=== PATIENT | female | born 2000 | race Caucasian/White ===

== ENCOUNTER 2021-11-26 13:55 | Emergency (ER) | payer SELFPAY ==
[~2021-11-26] VITALS: Ht 160 cm; Wt 44.1 kg
[2021-11-26 14:06] VITALS: TEMP 99.2
[2021-11-26] MEDS ORDERED: NEURONTIN300 MG/CAP PO (14:13)
[2021-11-26 14:30] LABS: COLLECTION METHOD CLEAN CATCH
[2021-11-26 14:42] LABS: MUCOUS Present (NOT PRESENT); PH 5 (5-8); URINE APPEARANCE Hazy (CLEAR/HAZY); URINE BACTERIA Rare /hpf (NONE SEEN); URINE BILIRUBIN Negative (NEGATIVE); URINE BLOOD 1+ (NEGATIVE); URINE COLOR Yellow (YELLOW); URINE GLUCOSE Negative (NEGATIVE); URINE KETONE Negative (NEGATIVE); URINE LEUKOCYTE ESTERASE Trace (NEGATIVE); URINE NITRATE Positive (NEGATIVE); URINE PROTEIN(semi-quant) Negative (NEGATIVE); URINE UROBILINOGEN Negative (NEGATIVE)
[2021-11-26] MEDS ORDERED: CEFTIN500 MG PO (16:18)
[2021-11-26 16:40] VITALS: BP 109/74; PULSE 76
== END 2021-11-26 16:42 | disposition home or self-care (01) ==
LOC: COL.ER 13:55
PROVIDERS: Emergency Medicine
DX: N39.0 Urinary tract infection, site not specified (principal); K62.89 Other specified diseases of anus and rectum; Z28.310 Unvaccinated for COVID-19; Z32.02 Encounter for pregnancy test, result negative

== ENCOUNTER 2023-10-06 08:59 | Inpatient (IN) | payer MEDICAID ==
[2023-10-06] VITALS (18 sets, daily range): BP systolic 102–130; BP diastolic 52–82; PULSE 48–85; TEMP 98–98.4
[~2023-10-06] VITALS: Ht 162.6 cm; Wt 71.4 kg
[~2023-10-06 08:59] MED LIST: CEFTIN500 MG PO; MACROBID 1100 MG/CAP PO; NEURONTIN300 MG/CAP PO
--- NOTE | 2023-10-06 09:10 | NUR ---
0910- Pt arrives on unit via wheelchair with family for scheduled primary section. Pt into bathroom to change into gown, Pt does not appear uncomfortable. 0914- Pt into bed. EFM and TOCO on and tracing well. Pt denies VB/LOF/UCs. Pt reports good FM. POC discussed, questions answered. Call light within reach.
[2023-10-06] MEDS ORDERED: LR 1,000 ML IV SCH (09:45)
[2023-10-06] MEDS ORDERED: PRENATAL TABLET PO (09:48)
[2023-10-06 10:15] LABS: BASO # 0.1 K/mm3 (0.0-0.2); BASO % 0.5 % (0.0-2.0); EOS # 0.2 K/mm3 (0.0-0.7); EOS % 2.1 % (0.0-4.0); GRAN # 8.4 K/mm3 (1.4-6.5); GRAN % 74.4 % (42.2-75.2); HEMOGLOBIN 11.5 g/dl (12.5-16.0); LYMPH # 1.6 K/mm3 (1.2-3.4); LYMPH % 14.2 % (20.0-51.0); MEAN CELL VOLUME 88 fl (80.0-100.0); MEAN CORPUSCULAR HEMOGLOBIN 30 pg (27-31); MEAN CORPUSCULAR HGB CONC 34 g/dl (33.0-37.0); MEAN PLATELET VOLUME 10.9 fl (7.4-10.4); MONO # 0.9 K/mm3 (0.1-0.6); MONO % 8.4 % (1.7-9.3); PLATELET COUNT 296 K/mm3 (130-400); RED BLOOD COUNT 3.84 M/mm3 (4.10-5.30); REDCELL DISTRIBUTION WIDTH-CV 12.4 % (11.5-14.5)
[2023-10-06 10:19] LABS: HEMATOCRIT 33.7 % (37.0-47.0)
[2023-10-06] MEDS ORDERED: Oxytocin 10 UNITS/ML VIAL ONE (10:36)
[2023-10-06] MEDS ORDERED: Ondansetron 4 MG/2 ML VIAL ONE (10:36)
[2023-10-06] MEDS ORDERED: NS 30 ML IV ONE (10:36)
[2023-10-06] MEDS ORDERED: Phenylephrine 10 MG/ML VIAL ONE (10:36)
[2023-10-06] MEDS ORDERED: EPINEPHrine 1 MG/1 ML Ampule ONE (10:36)
[2023-10-06] MEDS ORDERED: Ketorolac 30 MG/ML VIAL ONE (10:36)
[2023-10-06] MEDS ORDERED: dexAMETHasone 10 MG/ML VIAL ONE (10:36)
--- NOTE | 2023-10-06 11:45 | NUR ---
1145- Dr Sousa at bedside, completed, fetus breech presentation. FHR seen and evaluated by .
[2023-10-06] MEDS ORDERED: fentaNYL 50 MCG/ML 2 ML VIAL ONE (12:20)
[2023-10-06] MEDS ORDERED: Loratadine 10 MG TAB PO PRN (13:00)
[2023-10-06] MEDS ORDERED: Magnes Hydrox (MOM) 80 MG/ML 30 ML CUP PO PRN (13:00)
[2023-10-06] MEDS ORDERED: Ondansetron 4 MG/2 ML VIAL IV PRN (13:45)
[2023-10-06] MEDS ORDERED: Measles/Mumps/Rubella Virus Vaccine Live w Diluent 0.5 ML VIAL SQ SCH (13:45)
[2023-10-06] MEDS ORDERED: LR 1,000 ML IV PRN (13:45)
[2023-10-06] MEDS ORDERED: Naloxone 0.4 MG/ML VIAL IV PRN (13:45)
[2023-10-06] MEDS ORDERED: oxyCODONE/Acetaminophen 5-325 MG TAB PO PRN (13:45)
--- NOTE | 2023-10-06 16:14 | NUR ---
1545 RN BEDSIDE, CHANGES PADS AND PLACES ABDOMINAL BINDER ON PT
[2023-10-06] MEDS ORDERED: Sennosides/Docusate 8.6-50 MG TAB PO SCH (17:00)
--- NOTE | 2023-10-06 18:50 | NUR ---
1849- PT HAS CALLED OUT FOR PAIN MEDICATION. NURSE TO BEDSIDE. PT COMPLAINS OF PAIN 10/10 CRAMPING IN HER ABDOMEN AND AT INCISION SITE. DISCUSSED PERC NOT AVAILABLE UNTIL 1939. OFFERED HER SCHEDULED MOTRIN AND SHE WILL TAKE THIS. PUMP SETUP PROVIDED PER PT REQUEST AND PT MOTHER SHOWN HOW TO SET THIS UP. 1904- MOTIAN PROVIDED AND DR GOODMAN AT BEDSIDE TO DISCUSS BABY WITH MOM.
[2023-10-06] MEDS ORDERED: Ibuprofen 800 MG TAB PO SCH (18:55)
[2023-10-06] MEDS ORDERED: traZODone 50 MG TAB PO PRN (21:00)
--- NOTE | 2023-10-06 23:45 | NUR ---
2345- PAIN MEDICATION PROVIDED REQUESTED. PT REPORTS SHE IS FEELING MUCH MORE RELIEF. SHE IS ABLE TO LIFT BOTH LEGS OFF BED AT THIS TIME AND IS AGREEABLE TO GETTING UP TO BATHROOM AND TAKING HER MIMS OUT. PT SCD'S REMOVED AND PT ASSISTED TO SIT ON EDGE OF BED. PT STANDS AND AMBULATES TO BATHROOM WITH STANDBY ASSIST. PT SITS ON TOILET AND MIMS CATHETER REMOVED CHARTED. PT PERFORMS PERICARE. CLEAN PAD, PANTIES, AND GOWN PROVIDED. NORMAL LOCHIA DISCUSSED, AND QUESTIONS ANSWERED. 2355- PT AMBULATES TO SINK, WASHES HANDS, THEN BACK TO BED. PT ENCOURAGED TO PUMP WHILE SHE IS STILL AWAKE AND ASSISTANCE OFFERED. PT DECLINES TO PUMP AT THIS TIME. STATES SHE WOULD LIKE TO GO TO SLEEP. REQUESTS SOME MEDICATION TO HELP HER SLEEP BECAUSE SHE STATES SHE IS HAVING TROUBLE SLEEPING. 0000- TRAZADONE PROVIDED TO HELP PT SLEEP. SHE DENIES FURTHER NEEDS AT THIS TIME.
[2023-10-07 06:45] VITALS: BP 122/75; PULSE 79; TEMP 97.9
[2023-10-07] MEDS ORDERED: Sertraline 50 MG TAB PO SCH (09:00)
[2023-10-07 11:30] VITALS: BP 120/75; PULSE 94; TEMP 99
[2023-10-07 16:30] VITALS: BP 125/81; PULSE 91; TEMP 97.8
[2023-10-07 19:00] VITALS: BP 127/77; PULSE 87; TEMP 98.6
[2023-10-08 08:28] VITALS: BP 129/61; PULSE 93; TEMP 98.4
[2023-10-08 16:00] VITALS: BP 123/73; PULSE 87; TEMP 98.2
[2023-10-08 20:00] VITALS: BP 117/76; PULSE 100; TEMP 98.7
[2023-10-08] MEDS ORDERED: Ibuprofen 800 MG TAB PO SCH (20:00)
[2023-10-09 08:30] VITALS: BP 128/81; PULSE 86; TEMP 97.9
[2023-10-09] MEDS ORDERED: MOTRIN 800800 MG/TAB PO (08:36)
[2023-10-09] MEDS ORDERED: PERCOCET 325 MG1 TA2 PO (08:36)
[2023-10-09] MEDS ORDERED: ZOLOFT 50MG50 MG PO (08:37)
--- NOTE | 2023-10-09 09:33 | NUR ---
Initial visit; Patient and her mother thanked [employer]om[employer] Maker for offering congratulations for the of Lea's daughter and Grandmother's new grand-baby. Oleomargarine Maker commented on how good it is to have Lea here and wished her well and God's blessings for her family.
== END 2023-10-09 11:40 | disposition home or self-care (01) | DRG 788 ==
LOC: OB 08:59
PROVIDERS: ADMIT Obstetrics & Gynecology
PROC: 10D00Z1 Extraction of Products of Conception, Low, Open Approach (ICD-10-PCS; principal; 2023-10-06)
DX: O32.1XX0 Maternal care for breech presentation, not applicable or unspecified (principal); Z3A.39 39 weeks gestation of pregnancy; Z37.0 Single live birth; O99.344 Other mental disorders complicating childbirth; F32.A Depression, unspecified; K21.9 Gastro-esophageal reflux disease without esophagitis; O99.62 Diseases of the digestive system complicating childbirth; Z86.16 Personal history of COVID-19
CPT/HCPCS: J0171; J0665; J0690; J1100; J1885; J2371; J2405; J2590; J3010; J7120